=== PATIENT | male | born 1940 | race Caucasian/White ===

== ENCOUNTER → 2021-06-03 | Outpatient (CLI) | payer MEDICARE ==
[~2021-06-03] MED LIST: AMLODIPINE BESY10 MG PO; GLIMEPIRIDE PO; IOPAMIDOL 370 MG/ML 200 ML INFUS..BTL INJ ONE; LISINOPRIL10 MG PO; MELOXICAM PO; RANITIDINE PO; SODIUM CHLORIDE 0.9% 50ML 50 ML ONE
[2021-06-04 10:59] LABS: EST GLOMERULAR FILTRATION RATE > 60 ML/MIN (60-)
== END ==
LOC: CT 12:57
PROVIDERS: ATTEND Family Medicine
DX: R22.1 Localized swelling, mass and lump, neck (principal); Z87.891 Personal history of nicotine dependence
CPT/HCPCS: 36415; 70491; 82565; Q9967